=== PATIENT | female | born 1995 | race American Indian/Alaskan Native ===

== ENCOUNTER 2019-03-04 13:40 | Emergency (ER) | payer OTHER ==
[2019-03-04 14:08] VITALS: BP 106/62
--- NOTE | 2019-03-04 14:11 | Emergency Department Report ---
Chief Complaint: Abdominal Pain Stated Complaint: STOMACH PAIN Time Seen by Provider: 03/04/19 14:07 - HPI History of Present Illness: This is a 23 y.o. F. that presents to the ER with right sided abdominal pain for a few months. Patient states she was seen in a clinic and diagnosed with bacterial vaginitis in August 2018. LMP 02/17/19, G0 - Exam Vital Signs: Vital Signs 03/04/19 14:07 Temperature 98.2 F Pulse Rate 67 Respiratory 16 Rate Blood Pressure 106/62 O2 Sat by Pulse 100 Oximetry MSE screening note: Focused history and physical exam performed. Due to findings the following was ordered: This initial assessment/diagnostic orders/clinical plan/treatment(s) is/are subject to change based on patient's health status, clinical progression and re- assessment by fellow clinical providers in the ED. Further treatment and workup at subsequent clinical providers discretion. Patient/guardians urged not to elope from the ED as their condition may be serious if not clinically assessed and managed. Initial orders include: 1- Patient sent to [facility] for further evaluation and treatment 2- Labs ED Disposition for MSE Condition: Stable Instructions: Abdominal Pain (ED)
[2019-03-04 14:50] LABS: Basophils # (Auto) 0.1 K/mm3 (0.0-0.1); Eosinophils # (Auto) 0.2 K/mm3 (0.0-0.4); Eosinophils % (Auto) 3.3 % (0.0-4.3); Hematocrit 36.4 % (30.3-42.9); Hemoglobin 11.9 gm/dl (10.1-14.3); Lymphocytes # (Auto) 1.6 K/mm3 (1.2-5.4); Lymphocytes % (Auto) 20.9 % (13.4-35.0); Mean Corpuscular HGB Conc 33 % (30-34); Mean Corpuscular Volume 85 fl (79-97); Monocytes # (Auto) 0.5 K/mm3 (0.0-0.8); Platelet Count 261 K/mm3 (140-440); Red Blood Count 4.28 M/mm3 (3.65-5.03); Red Cell Distribution Width 14.7 % (13.2-15.2)
[2019-03-04 14:58] LABS: Alanine Aminotransferase 13 units/L (7-56); Albumin 4.2 g/dL (3.9-5); BUN/Creatinine Ratio 23; Blood Urea Nitrogen 16 mg/dL (7-17); Calcium 9.1 mg/dL (8.4-10.2); Hemolysis Index 17
[2019-03-04 15:18] LABS: Bilirubin,Urine NEG (Negative); Blood,Urine NEG (Negative); Color,Urine Yellow (Yellow); Mucus,Urine 2+ /HPF; Protein,Urine <15 mg/dL mg/dL (Negative); Urobilinogen,Urine < 2.0 mg/dL (<2.0)
--- NOTE | 2019-03-04 15:52 | Emergency Department Report ---
ED Abdominal Pain HPI - General Chief Complaint: Abdominal Pain Stated Complaint: STOMACH PAIN Time Seen by Provider: 03/04/19 14:07 Source: patient Mode of arrival: Ambulatory Limitations: No Limitations - History of Present Illness Initial Comments: Pt presents to the emergency room with right sided upper abdominal pain. The patient is young and fit. She denies nausea or vomiting or diarrhea. She states that her last BM was one week ago. She states that this is normal for her that she doesn't have routine bowel movements. She has her usual appetite but again is only 58 KG exam works out. Patient is in no acute distress her abdominal exam is unremarkable for tenderness with palpation. She is afebrile. She denies dysuria. She has no vaginal discharge. No back pain. She denies medical history and is on no home medications. MD Complaint: abdominal pain -: Gradual Location: RUQ Migration to: no migration Severity: mild Quality: cramping Improves With: nothing Worsens With: nothing Associated Symptoms: constipation - Related Data LMP (females 10-50): 2 months Previous Rx's Medication Instructions Recorded Last Taken Type Bisacodyl [Dulcolax suppos] 10 mg PA QDAY #5 supp.rect 03/04/19 Unknown Rx Magnesium Citrate [Citrate of 300 ml PO ONCE #1 bottle 03/04/19 Unknown Rx Magnesia] Polyethylene Glycol 3350 [Miralax] 119 gm PO DAILY #5 powder 03/04/19 Unknown Rx Allergies Allergy/AdvReac Type Severity Reaction Status Date / Time No Known Allergies Allergy Unverified 03/04/19 13:42 ED Review of Systems ROS: Stated complaint: STOMACH PAIN Other details as noted in HPI Comment: All other systems reviewed and negative ED Past Medical Hx - Past Medical History Previous Medical History?: No - Surgical History Past Surgical History?: No - Family History Family history: no significant - Social History Smoking Status: Never Smoker Substance Use Type: None - Medications Home Medications: Home Medications Medication Instructions Recorded Confirmed Last Taken Type Bisacodyl [Dulcolax suppos] 10 mg PA QDAY #5 supp.rect 03/04/19 Unknown Rx Magnesium Citrate [Citrate of 300 ml PO ONCE #1 bottle 03/04/19 Unknown Rx Magnesia] Polyethylene Glycol 3350 [Miralax] 119 gm PO DAILY #5 powder 03/04/19 Unknown Rx ED Physical Exam - General Limitations: No Limitations General appearance: alert - Head Head exam: Present: atraumatic, normocephalic - Eye Eye exam: Present: normal appearance, PERRL - ENT ENT exam: Present: normal exam, mucous membranes moist - Neck Neck exam: Present: normal inspection - Cardiovascular Cardiovascular Exam: Present: regular rate - GI/Abdominal GI/Abdominal exam: Present: soft, normal bowel sounds - Rectal Rectal exam: Present: deferred - Extremities Exam Extremities exam: Present: normal inspection, full ROM - Back Exam Back exam: Present: normal inspection, full ROM - Neurological Exam Neurological exam: Present: alert, oriented X3 - Psychiatric Psychiatric exam: Present: normal affect, normal mood - Skin Skin exam: Present: warm, dry ED Course Vital Signs 03/04/19 14:07 Temperature 98.2 F Pulse Rate 67 Respiratory 16 Rate Blood Pressure 106/62 O2 Sat by Pulse 100 Oximetry ED Medical Decision Making - Lab Data Result diagrams: 03/04/19 14:17 03/04/19 14:17 - Radiology Data Radiology results: report reviewed, image reviewed - Medical Decision Making Labs 03/04/19 03/04/19 03/04/19 14:17 14:17 14:17 WBC 7.5 RBC 4.28 Hgb 11.9 Hct 36.4 MCV 85 MCH 28 MCHC 33 RDW 14.7 Plt Count 261 Lymph % (Auto) 20.9 [place] % (Auto) 7.0 Eos % (Auto) 3.3 Baso % (Auto) 1.0 Lymph # 1.6 [place] # 0.5 Eos # 0.2 Baso # 0.1 Seg Neutrophils % 67.8 Seg Neutrophils # 5.1 Sodium 137 Potassium 3.9 Chloride 102.9 Carbon Dioxide 23 Anion Gap 15 BUN 16 Creatinine 0.7 Estimated GFR > 60 BUN/Creatinine Ratio 23 Glucose 92 Calcium 9.1 Total Bilirubin 0.50 AST 19 ALT 13 Alkaline Phosphatase 67 Total Protein 7.7 Albumin 4.2 Albumin/Globulin Ratio 1.2 Lipase HCG, Qual Negative Urine Color Urine Turbidity Urine pH Ur Specific [place] Urine Protein Urine Glucose (UA) Urine Ketones Urine Blood Urine Nitrite Urine Bilirubin Urine Urobilinogen Ur Leukocyte Esterase Urine WBC (Auto) Urine RBC (Auto) U Epithel Cells (Auto) Urine Mucus 03/04/19 03/04/19 14:46 15:05 WBC RBC Hgb Hct MCV MCH MCHC RDW Plt Count Lymph % (Auto) [place] % (Auto) Eos % (Auto) Baso % (Auto) Lymph # [place] # Eos # Baso # Seg Neutrophils % Seg Neutrophils # Sodium Potassium Chloride Carbon Dioxide Anion Gap BUN Creatinine Estimated GFR BUN/Creatinine Ratio Glucose Calcium Total Bilirubin AST ALT Alkaline Phosphatase Total Protein Albumin Albumin/Globulin Ratio Lipase 41 HCG, Qual Urine Color Yellow Urine Turbidity Slightly-cloudy Urine pH 5.0 Ur Specific [place] 1.032 H Urine Protein <15 mg/dl Urine Glucose (UA) Neg Urine Ketones Neg Urine Blood Neg Urine Nitrite Neg Urine Bilirubin Neg Urine Urobilinogen < 2.0 Ur Leukocyte Esterase Tr Urine WBC (Auto) 3.0 Urine RBC (Auto) 1.0 U Epithel Cells (Auto) 15.0 H Urine Mucus 2+ Vital Signs 03/04/19 14:07 Temperature 98.2 F Pulse Rate 67 Respiratory 16 Rate Blood Pressure 106/62 O2 Sat by Pulse 100 Oximetry labs noted abd xray noted no bm in 1 week abd soft non tender no fever discussed diet and rx for her constipation will dc home with rx to see pcp for follow up on dc ambulatory, taking po and in no pain Critical care attestation.: If time is entered above; I have spent that time in minutes in the direct care of this critically ill patient, excluding procedure time. ED Disposition Clinical Impression: Constipation Disposition: [id number] TO HOME OR SELFCARE Is pt being admited?: No Does the pt Need Aspirin: No Condition: Stable Instructions: Constipation (ED), High Fiber Diet (ED) Additional Instructions: drink a lot of water meds as ordered today high fiber diet follow up pcp if this persists referral below Prescriptions: Magnesium Citrate [Citrate of Magnesia] 300 ml PO ONCE #1 bottle Bisacodyl [Dulcolax suppos] 10 mg PA QDAY #5 supp.rect Polyethylene Glycol 3350 [Miralax] 119 gm PO DAILY #5 powder Referrals: CHARLENE MATTHEWS MD [Primary Care Provider] - 3-5 Days [facility] [Outside] - 3-5 Days Time of Disposition: 16:51
[2019-03-04] MEDS ORDERED: CEPHULAC PO ONE (16:49)
--- NOTE | 2019-03-04 17:04 | XRay Report ---
PROCEDURE: XR ABDOMEN 1V AP TECHNIQUE: Abdominal radiograph, single view. HISTORY: abd pain COMPARISONS: None . FINDINGS: Bowel gas pattern: Nonobstructive . Masses or calcifications: None . Bony structures: No significant abnormality . Other: None . IMPRESSION: No acute abnormality. This document is electronically signed by Sacha Higgins MD., Mar 04 2019 05:02:39 PM ET
== END 2019-03-04 17:02 | disposition home or self-care (01) ==
LOC: ED 13:40
DX: K59.00 Constipation, unspecified (principal)
CPT/HCPCS: 36415; 74018; 80053; 81001; 83690; 84703; 85025; 99284